=== PATIENT | female | born 1990 | race Caucasian/White ===

== ENCOUNTER 2018-06-30 20:18 | Emergency (ER) | payer SELFPAY ==
[~2018-06-30] VITALS: Ht 175.3 cm; Wt 88.9 kg
[2018-06-30 20:28] VITALS: Ht 175.3 cm; Wt 88.9 kg
[2018-06-30 21:13] LABS: BASOPHIL % 0.4 % (0-2); PLATELET COUNT 367 x10^3mcL (130-400)
[2018-06-30 21:17] LABS: RED CELL DISTRIBUTION WIDTH 16.4 % (11.5-14.5)
[2018-06-30 22:10] LABS: CALCIUM 9.3 mg/dL (8.5-10.1); CARBON DIOXIDE 23.9 mmol/L (21-32); CHLORIDE SERUM 104 mmol/L (98-107); CREATININE SERUM 0.6 mg/dL (0.6-1.0); GFR1 > 60 mL/min; GLUCOSE SERUM 88 mg/dL (74-106); POTASSIUM SERUM 3.7 mmol/L (3.5-5.1); SODIUM SERUM 139 mmol/L (136-145)
[2018-06-30 22:15] LABS: ALBUMIN 4.3 g/dL (3.4-5.0); ALKALINE PHOSPHATASE 65 U/L (46-116); ALT/SGPT 20 U/L (14-59); AST/SGOT 10 U/L (15-37); BILIRUBIN TOTAL 0.3 mg/dL (0.20-1.00); TOTAL PROTEIN, SERUM 8.2 g/dL (6.4-8.2)
[2018-07-01 01:00] VITALS: BP 143/85
== END 2018-07-01 01:30 | disposition home or self-care (01) ==
LOC: ED 20:18
PROVIDERS: Emergency Medicine
DX: R07.2 Precordial pain (principal); R51 Headache; R11.0 Nausea; R53.83 Other fatigue; E11.9 Type 2 diabetes mellitus without complications; E28.2 Polycystic ovarian syndrome
CPT/HCPCS: 83880; J1100; J2765; J7030